=== PATIENT | female | born 1995 | race Caucasian/White ===

== ENCOUNTER 2017-01-29 17:27 | Emergency (ER) | payer BC ==
[2017-01-29 17:39] VITALS: BP 99/63
--- NOTE | 2017-01-29 18:33 | UC ---
General HPI - HPI Summary HPI Summary: NEEDS REFILL OF SEROQUIL, PROPANOLOL, AND WELLBUTRIN. WAS COVERED WITH [employer] Drape, HAS BEEN DROPPED BY THEIR SERVICE. APPT WITH [facility] IN [place]. NO THOUGHTS OF SELF HARM OR OF HURTING OTHERS. - History of Current Complaint Chief Complaint: UCMedRefill Stated Complaint: MED REFILL Time Seen by Provider: 01/29/17 18:08 Hx Obtained From: Patient Hx Last Menstrual Period: 01/15/17 Onset/Duration: Still Present Onset Severity: Mild Current Severity: None Pain Intensity: 0 Associated Signs & Symptoms: Negative: Agitation, Abdominal Pain, Cough, Dizziness, Diarrhea, Dysuria, Fever, Headache, Palpitations, Wheezing, Weakness - Allergy/Home Medications Allergies/Adverse Reactions: Allergies Allergy/AdvReac Type Severity Reaction Status Date / Time No Known Allergies Allergy Verified 01/29/17 17:39 Home Medications: Home Medications Bupropion HCl [Wellbutrin Sr] 300 mg PO BEDTIME 01/29/17 [History Confirmed ] [place] Carbonate 150 mg PO BEDTIME 01/29/17 [History Confirmed 01/29/17] Propranolol TAB* [Inderal TAB*] 10 mg PO DAILY PRN 01/29/17 [History Confirmed 01/29/17] Quetiapine Fumarate [Seroquel] 25 mg PO BEDTIME PRN 01/29/17 [History Confirmed 01/29/17] PMH/Surg Hx/FS Hx/Imm Hx Previously Healthy: Yes - Surgical History Surgical History: Yes Surgery Procedure, Year, and Place: HYMENECTOMY - Family History Known Family History: Positive: None - Social History Occupation: Student Lives: With Family Alcohol Use: Weekly Substance Use Type: Marijuana Substance Use Comment - Amount & Last Used: none in a week Smoking Status (MU): Light Every Day Tobacco Smoker Amount Used/How Often: about 3 times a week Review of Systems Constitutional: Negative Skin: Negative Eyes: Negative ENT: Negative Respiratory: Negative Cardiovascular: Negative Gastrointestinal: Negative Genitourinary: Negative Motor: Negative Neurovascular: Negative Musculoskeletal: Negative Neurological: Negative Psychological: Negative All Other Systems Reviewed And Are Negative: Yes Physical Exam Triage Information Reviewed: Yes Appearance: Well-Appearing, No Pain Distress, Well-Nourished Vital Signs: Initial Vital Signs Temp 98.5 F 01/29/17 17:33 Pulse 68 01/29/17 17:33 Resp 16 01/29/17 17:33 BP 99/63 01/29/17 17:33 Pulse Ox 100 01/29/17 17:33 Vital Signs Reviewed: Yes Eye Exam: Normal ENT Exam: Normal ENT: Positive: Normal ENT inspection, Hearing grossly normal, Pharynx normal, TMs normal Dental Exam: Normal Neck exam: Normal Neck: Positive: Supple, Nontender, No Lymphadenopathy Respiratory Exam: Normal Respiratory: Positive: Chest non-tender, Lungs clear, Normal breath sounds, No respiratory distress, No accessory muscle use Cardiovascular Exam: Normal Cardiovascular: Positive: RRR, No Murmur, Pulses Normal Abdominal Exam: Normal Musculoskeletal Exam: Normal Musculoskeletal: Positive: Strength Intact, ROM Intact Neurological Exam: Normal Psychological Exam: Normal Skin Exam: Normal Course/Dx - Course Course Of Treatment: PATIENT AGREED TO SEEK EVALUATION BY PRIMARY CARE, OR TO VISIT ED FOR PSYCHIATRIC CONSULTATION AND EVALUATION - Differential Dx - Multi-Symptom Differential Diagnoses: Metabolic Abnormality, Urinary Tract Infection Provider Diagnoses: NORMAL EXAM; Discharge - Discharge Plan Condition: Stable Disposition: HOME Referrals: Cuca Mosley MD [Primary Care Provider] - Additional Instructions: WE ARE UNABLE TO REFILL YOUR MEDICATIONS AT THIS TIME. PLEASE CALL YOUR PRIMARY CARE PROVIDER, AND/OR SEEK EVALUATION WITH THE EMERGENCY DEPARTMENT TO EVALUATE YOUR CONDITION AND TO RESPOND TO YOUR CONCERNS.
== END 2017-01-29 18:22 | disposition home or self-care (01) ==
LOC: UCEAST 17:27
DX: F99 Mental disorder, not otherwise specified (principal)
CPT/HCPCS: 99211; G0463

== ENCOUNTER 2017-01-29 19:08 | Emergency (ER) | payer BC ==
[2017-01-29 21:24] VITALS: BP 98/54
--- NOTE | 2017-01-29 21:49 | ED ---
Psychiatric Complaint - HPI Summary HPI Summary: THe patient is a 22 year old female priorly under the care of [facility] where her medications were filled in the past. The patient states she no longer follows with them and has an appointment [facility], however is unable to be seen by them until 02/09. She will run out of her medication prior to this time and is requesting refills for 2 weeks. SHe does have a primary physician. SHe denies HI/ SI and is not feeling depressed or manic. She is traveling to [place] tomorrow. - History Of Current Complaint Chief Complaint: EDPrescriptionNeeded Time Seen by Provider: 01/29/17 20:21 Hx Obtained From: Patient Hx Last Menstrual Period: 01/15/17 Severity Currently: None Aggravating Factor(s): Nothing Alleviating Factor(s): Nothing - Allergies/Home Medications Allergies/Adverse Reactions: Allergies Allergy/AdvReac Type Severity Reaction Status Date / Time No Known Allergies Allergy Verified 01/29/17 17:39 PMH/Surg Hx/FS Hx/Imm Hx Previously Healthy: No - previous psych history Respiratory History: Reports: Hx Asthma - Surgical History Surgery Procedure, Year, and Place: HYMENECTOMY Infectious Disease History: No Infectious Disease History: Denies: Traveled Outside the [place] in Last 30 Days - Family History Known Family History: Positive: None - Social History Alcohol Use: Weekly Substance Use Type: Reports: Marijuana Substance Use Comment - Amount & Last Used: none in a week Smoking Status (MU): Light Every Day Tobacco Smoker Amount Used/How Often: about 3 times a week Review of Systems All Other Systems Reviewed And Are Negative: Yes Physical Exam Triage Information Reviewed: Yes Vital Signs On Initial Exam: Initial Vitals Temp Pulse Resp BP Pulse Ox 97.7 F 61 14 104/64 100 01/29/17 19:19 01/29/17 19:19 01/29/17 19:19 01/29/17 19:19 01/29/17 19:19 Vital Signs Reviewed: Yes Appearance: Positive: Well-Appearing, No Pain Distress, Well-Nourished Skin: Positive: Warm, Skin Color Reflects Adequate Perfusion Respiratory/Lung Sounds: Positive: Breath Sounds Present Cardiovascular: Positive: Normal, RRR Neurological: Positive: Normal, Sensory/Motor Intact, Alert, Oriented to Person Place, Time, CN Intact II-III, Normal Gait, Facial Symmetry, Speech Normal Psychiatric: Positive: Normal Diagnostics - Vital Signs Vital Signs Temp Pulse Resp BP Pulse Ox 01/29/17 21:15 97.6 F 52 16 98/54 100 01/29/17 19:19 97.7 F 61 14 104/64 100 - Laboratory Lab Statement: Any lab studies that have been ordered have been reviewed, and results considered in the medical decision making process. Course/Dx - Course Course Of Treatment: Tx was discussed with patient due to patients travel plans medications will be called in for 1 week, however patient should be followed by primary or TC. - Differential Dx/Clinical Impression Provider Diagnosis: Medication refill Discharge - Discharge Plan Condition: Stable Disposition: HOME Prescriptions: Bupropion HCl [Wellbutrin Sr] 300 mg PO BEDTIME #7 dose Propranolol TAB* [Inderal TAB*] 10 mg PO DAILY PRN #7 dose PRN Reason: Anxiety Quetiapine Fumarate [Seroquel] 25 mg PO BEDTIME PRN #7 dose PRN Reason: Insomnia Patient Education Materials: Bupropion (By mouth), Quetiapine (By mouth), Propranolol (By mouth) Referrals: Cuca Mosley MD [Primary Care Provider] - Additional Instructions: - Medication given x 7 days. Please follow up with primary physician for medication refills.
--- NOTE | 2017-02-18 16:44 | ED ---
Progress - Progress Note Progress Note: It appears pt was seen by me but chart is attributed to the EVELIA Esqueda, so my documentation is complete Course/Dx - Course Course Of Treatment: Tx was discussed with patient due to patients travel plans medications will be called in for 1 week, however patient should be followed by primary or TC. - Diagnoses Provider Diagnoses: Medication refill
== END 2017-01-29 22:25 | disposition home or self-care (01) ==
LOC: ED 19:08
DX: Z76.0 Encounter for issue of repeat prescription (principal); F17.210 Nicotine dependence, cigarettes, uncomplicated
CPT/HCPCS: 99282

== ENCOUNTER 2018-11-20 16:25 | Emergency (ER) | payer BC ==
[2018-11-20 16:44] VITALS: BP 103/65
--- NOTE | 2018-11-20 16:56 | UC ---
Dental HPI - HPI Summary HPI Summary: had wisdom teeth removed about a month ago, 3 days ago noticed swelling lower L gum , becoming bigger and tender. denies tooth pain. has taken no med so far - History of Current Complaint Chief Complaint: Lynn Stated Complaint: MOUTH PAIN Time Seen by Provider: 11/20/18 16:40 Hx Obtained From: Patient Hx Last Menstrual Period: no periods ?: No Onset/Duration: Gradual Onset Severity: Mild Pain Intensity: 2 Aggravating Factor(s): Other - pressure on jeremy Related History: Swelling - Allergies/Home Medications Allergies/Adverse Reactions: Allergies Allergy/AdvReac Type Severity Reaction Status Date / Time No Known Allergies Allergy Verified 11/20/18 16:37 Home Medications: Home Medications [place] Carbonate [[place] Carbonate 600 mg cap] 600 mg PO DAILY 11/20/18 [ History Confirmed 11/20/18] Lurasidone(*) [Latuda] 40 mg PO DAILY 11/20/18 [History Confirmed 11/20/18] PMH/Surg Hx/FS Hx/Imm Hx Previously Healthy: Yes Psychological History: Anxiety - Surgical History Surgical History: Yes Surgery Procedure, Year, and Place: HYMENECTOMY - Family History Known Family History: Positive: None, Other - SI - Social History Occupation: Employed Full-time Lives: With Family Alcohol Use: Weekly Alcohol Amount: 4X/ week Substance Use Type: Marijuana Substance Use Comment - Amount & Last Used: a few times/ week Smoking Status (MU): Light Every Day Tobacco Smoker Amount Used/How Often: 5 cigs/ week Household Exposure Type: Cigarettes Cessation Counseling: Patient Advised to Stop - Immunization History Most Recent Influenza Vaccination: n/a Most Recent Pneumonia Vaccination: n/a Review of Systems All Other Systems Reviewed And Are Negative: Yes Constitutional: Positive: Negative. Negative: Fever, Chills ENT: Negative: Sore Throat, Ear Ache, Sinus Congestion, Sinus Pain/Tenderness Respiratory: Positive: Negative Cardiovascular: Positive: Negative Is Patient Immunocompromised?: No Physical Exam Triage Information Reviewed: Yes Appearance: Well-Appearing, No Pain Distress, Well-Nourished Vital Signs: Initial Vital Signs Temp 98 F 11/20/18 16:39 Pulse 62 11/20/18 16:39 Resp 18 11/20/18 16:39 BP 103/65 11/20/18 16:39 Pulse Ox 100 11/20/18 16:39 Dental: Positive: Abscess @ - palpable almond sized, tender mass lower L gum line, no pustule or drainage Neck exam: Normal Neck: Positive: No Lymphadenopathy Respiratory Exam: Normal Respiratory: Positive: Lungs clear Cardiovascular Exam: Normal Neurological Exam: Normal Psychological Exam: Normal Skin Exam: Normal Dental Complaint Course/Dx - Differential Dx/Diagnosis Differential Diagnosis/Dx: Dental Abscess, Dental Caries, Gingivitis, Other - abscess Provider Diagnosis: Dental abscess Discharge - Sign-Out/Discharge Documenting (check all that apply): Patient Departure All imaging exams completed and their final reports reviewed: No Studies - Discharge Plan Condition: Good Disposition: HOME Prescriptions: Penicillin VK 500 MG TAB(NF) [Penicillin VK 500 mg Tab] 500 mg PO TID #30 tab Patient Education Materials: Dental Abscess (ED) Referrals: Cuca Mosley MD [Primary Care Provider] - Additional Instructions: start penicillin and take as prescribed use ibuprofen 600mg every 6 hours as needed for pain Make sure to follow-up with your oral surgeon next week as planned - Billing Disposition and Condition Condition: GOOD Disposition: Home
== END 2018-11-20 17:00 | disposition home or self-care (01) ==
LOC: UCEAST 16:25
DX: K04.7 Periapical abscess without sinus (principal); F17.210 Nicotine dependence, cigarettes, uncomplicated
CPT/HCPCS: 99212; G0463

== ENCOUNTER 2019-06-30 14:16 | Inpatient (IN) | payer SELFPAY ==
--- NOTE | 2019-06-30 14:48 | ED ---
Psychiatric Complaint - HPI Summary HPI Summary: Patient is a 24 y/o F w/ Hx of bipolar disorder, depression, and anxiety who presents to [facility] with complaints of depression and SI. She states that she met with her friend today and discussed her Sx, patient was advised to come to ED for evaluation. She notes that she was at [facility] ten months ago for psychiatric issues as well. Patient reports that she has been off of her psychiatric medications for the past 3.5 months. She reports excessive alcohol, marijuana, and occasional cocaine usage. Patient reports last alcohol consumption was three days ago. Home medications and allergies are reviewed. - History Of Current Complaint Chief Complaint: EDMentalHealth Time Seen by Provider: 06/30/19 14:32 Hx Obtained From: Patient Hx Last Menstrual Period: no periods Onset/Duration: Still Present Timing: Constant Character: Depressed Has Suicidal: Reports: Thoughts - Allergies/Home Medications Allergies/Adverse Reactions: Allergies Allergy/AdvReac Type Severity Reaction Status Date / Time No Known Allergies Allergy Verified 06/30/19 14:24 Home Medications: Home Medications NK [No Home Medications Reported] 06/30/19 [History Confirmed 06/30/19] PMH/Surg Hx/FS Hx/Imm Hx Respiratory History: Reports: Hx Asthma Sensory History: Denies: Hx Contacts or Glasses, Hx Deafness, Hx Hearing Aid Opthamlomology History: Denies: Hx Contacts or Glasses Psychiatric History: Reports: Hx Anxiety, Hx Depression, Hx Community Mental Health Tx, Hx Bipolar Disorder Denies: Hx Eating Disorder, Hx of Violent Episodes Against Others - Surgical History Surgery Procedure, Year, and Place: HYMENECTOMY Infectious Disease History: No Infectious Disease History: Denies: Traveled Outside the [place] in Last 30 Days - Family History Known Family History: Positive: Other - SI - Social History Alcohol Use: Weekly Alcohol Amount: 4X/ week Substance Use Type: Reports: Marijuana Substance Use Comment - Amount & Last Used: a few times/ week Smoking Status (MU): Light Every Day Tobacco Smoker Amount Used/How Often: 5 cigs/ week Review of Systems Negative: Fever - on vitals, temp is 98.8 F Psychological: Other - positive - SI Positive: Depressed All Other Systems Reviewed And Are Negative: Yes Physical Exam - Summary Physical Exam Summary: VITAL SIGNS: Reviewed. GENERAL: Patient is a well-developed and nourished female who is lying comfortable in the stretcher. Patient is not in any acute respiratory distress. HEAD AND FACE: No signs of trauma. No ecchymosis, hematomas or skull depressions. No sinus tenderness. EYES: PERRLA, EOMI x 2, No injected conjunctiva, no nystagmus. EARS: Hearing grossly intact. Ear canals and tympanic membranes are within normal limits. MOUTH: Oropharynx within normal limits. NECK: Supple, trachea is midline, no adenopathy, no JVD, no carotid bruit, no c- spine tenderness, neck with full ROM. CHEST: Symmetric, no tenderness at palpation. LUNGS: Clear to auscultation bilaterally. No wheezing or crackles. CVS: Regular rate and rhythm, S1 and S2 present, no murmurs or gallops appreciated. ABDOMEN: Soft, non-tender. No signs of distention. No rebound, no guarding, and no masses palpated. Bowel sounds are normal. EXTREMITIES: FROM in all major joints, no edema, no cyanosis or clubbing. NEURO: Alert and oriented x 3. No acute neurological deficits. Speech is normal and follows commands. SKIN: Dry and warm. Triage Information Reviewed: Yes Vital Signs On Initial Exam: Initial Vitals Temp Pulse Resp BP Pulse Ox 98.8 F 79 18 135/69 100 06/30/19 14:19 06/30/19 14:19 06/30/19 14:19 06/30/19 14:19 06/30/19 14:19 Vital Signs Reviewed: Yes Procedures - Sedation Patient Received Moderate/Deep Sedation with Procedure: No Diagnostics - Vital Signs Vital Signs Temp Pulse Resp BP Pulse Ox 06/30/19 14:19 98.8 F 79 18 135/69 100 - Laboratory Result Diagrams: 06/30/19 14:56 06/30/19 14:56 Lab Statement: Any lab studies that have been ordered have been reviewed, and results considered in the medical decision making process. Course/Dx - Course Assessment/Plan: Patient is a 24 y/o F w/ Hx of bipolar disorder, depression, and anxiety who presents to [facility] with complaints of depression and SI. She states that she met with her friend today and discussed her Sx, patient was advised to come to ED for evaluation. She notes that she was at [facility] ten months ago for psychiatric issues as well. Patient reports that she has been off of her psychiatric medications for the past 3.5 months. She reports excessive alcohol, marijuana, and occasional cocaine usage. Patient reports last alcohol consumption was three days ago. Home medications and allergies are reviewed. Blood work w/o a significant abnormality. She is medically cleared. She is awaiting a [facility]. Patient is hemodynamically stable and A+O x 3. Patient was evaluated by Dr. Robison and he recommends admission to his services. Diagnosis is bipolar 1. The patient is hemodynamically stable. - Differential Dx/Clinical Impression Differential Diagnosis/HQI/PQRI: Positive: Anxiety, Depression, Suicidal Ideation Provider Diagnosis: Bipolar 1 disorder - Physician Notifications Discussed Care Of Patient With: Sonu Robison Time Discussed With Above Provider: 18:46 Instructed by Provider To: Other - Patient's case was reviewed by Dr. Robison, patient will be admitted to [facility] psych. Discharge ED - Sign-Out/Discharge Documenting (check all that apply): Patient Departure - admit - Discharge Plan Condition: Stable Disposition: ADMITTED TO [facility] - Billing Disposition and Condition Condition: STABLE Disposition: Admitted to [facility] - Attestation Statements Document Initiated by Saúlibe: Yes Documenting Scribe: ELBA HEWITT Provider For Whom Brock is Documenting (Include Credential): AILYN LAZO MD Scribe Attestation: ELBA Vasques scribed for AILYN LAZO MD on 06/30/19 at 2136. Scribe Documentation Reviewed: Yes Provider Attestation: The documentation as recorded by the ELBA coombs accurately reflects the service I personally performed and the decisions made by , AILYN LAZO MD Status of Scribe Document: Viewed
[2019-06-30 15:07] LABS: ABS Basophils 0.1 10^3/ul (0-0.2); ABS Eosinophils 0.1 10^3/ul (0-0.6); ABS Lymphocytes 1.8 10^3/ul (1.0-4.8); ABS Monocytes 0.5 10^3/ul (0-0.8); ABS Neutrophils 4.6 10^3/ul (1.5-7.7); Eosinophil % 1.7 %; Hematocrit 42 % (35-47); Hemoglobin 14.8 g/dL (12.0-16.0); Lymphocyte % 25.1 %; Mean Corpuscular HGB Conc 35 g/dL (31-36); Mean Corpuscular Hemoglobin 33 pg (27-31); Mean Corpuscular Volume 94 fL (80-97); Mean Platelet Volume 7.2 fL (7.4-10.4); Platelet Count 191 10^3/uL (150-450); Red Blood Count 4.53 10^6 /uL (3.70-4.87); Red Cell Distribution Width 13 % (10-15); White Blood Count 7.1 10^3/uL (3.5-10.8)
[2019-06-30 15:09] LABS: Urine Appearance Clear; Urine Bilirubin Negative (Negative); Urine Blood Negative (Negative); Urine Color Straw; Urine Glucose Negative (Negative); Urine Ketones Negative (Negative); Urine Nitrite Negative (Negative); Urine Protein Negative (Negative); Urine Specific Gravity 1.002 (1.010-1.030); Urine Urobilinogen Negative (Negative)
[2019-06-30 15:12] LABS: Urine Bacteria Absent (Absent); Urine Red Blood Cell Trace(0-2/hpf) (Absent); Urine Squamous Epithelial Cell Present (Absent); Urine White Blood Cell Trace(0-5/hpf) (Absent)
[2019-06-30 15:29] LABS: ALT 33 U/L (7-52); AST 31 U/L (13-39); Albumin 4.3 g/dL (3.2-5.2); Albumin/Globulin Ratio 1.5 (1-3); Alkaline Phosphatase 58 U/L (34-104); Anion Gap 7 mmol/L (2-11); BUN/Creatinine Ratio 17.6 (8-20); Blood Urea Nitrogen 12 mg/dL (6-24); CO2 Carbon Dioxide 27 mmol/L (22-32); Chloride 104 mmol/L (101-111); EGFR African American 129.7 (>60); EGFR Non-African American 107.2 (>60); Globulin 2.9 g/dL (2-4); Glucose 88 mg/dL (70-100); Potassium 3.7 mmol/L (3.5-5.0); Sodium 138 mmol/L (135-145); Total Protein 7.2 g/dL (6.4-8.9)
[2019-06-30 15:32] LABS: Urine Benzodiazepine Screen None Detected (None Detect); Urine Opiates Screen None Detected (None Detect)
[2019-06-30 16:10] LABS: Alcohol < 10 mg/dL (<10); Salicylate < 2.50 mg/dL (<30)
[2019-06-30 16:12] LABS: TSH (Thyroid Stimulating Horm) 0.81 mcIU/mL (0.34-5.60)
[2019-06-30 16:13] LABS: Acetaminophen < 15 mcg/mL
[2019-06-30] MEDS ORDERED: Al Hydrox/Mg Hydrox/Simet LIQ* 30 ML UDC PO PRN (19:59)
[2019-06-30] MEDS ORDERED: hydrOXYzine HCL TAB* 50 MG PO PRN (21:15)
[2019-07-01 08:00] LABS: Cholesterol 124 mg/dL; HDL Cholesterol 28.8 mg/dL; LDL Cholesterol 80 mg/dL; Triglycerides 74 mg/dL
[2019-07-01] MEDS: Vitamin THERAPEUTIC TAB PO SCH (08:53)
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
[2019-07-01] MEDS: ARIPiprazole TAB* 5 MG PO SCH (21:12)
[2019-07-02] MEDS: Vitamin THERAPEUTIC TAB PO SCH (12:25)
[2019-07-02 13:53] LABS: HCG Pregnancy < 0.60 mIU/mL
[2019-07-02] MEDS: ARIPiprazole TAB* 5 MG PO SCH (21:52)
[2019-07-03] MEDS: Vitamin THERAPEUTIC TAB PO SCH (07:55)
--- NOTE | 2019-07-03 17:00 | PN ---
Subjective - Subjective Date of Service: 07/03/19 Service Type: 18362 Hosp care 25 min moderate complexity Subjective: Elise appears to be calm, pleasant and cooperative. She understand the reasons for her relapse on symptoms and is willing to take meds again. She also requested to increase the dose of her meds so that she can go on long acting injectable before she leaves. Denies racing thoughts and SI. Says she slept well last night. Objective - General Observations Appearance: Neat, Well Groomed Appears Stated Age: Yes Stature: Thin, Tall Posture: WNL Eye Contact: Average Behavior/Activity: WNL - Interaction Observations Attitude Towards Examiner: Cooperative Stated Mood: Euthymic Affect: Full Speech Pattern/Tone: Clear, Appropriate, Normal Volume Perception: WNL Thought Content: WNL Hallucination Type: Denies Delusion Type: Denies - Cognitive Function Orientation: A&O x 4 Level of Consciousness: Awake, Alert, Appropriate Cognition: WNL Estimated Intelligence: Normal Insight: WNL Judgment Within Normal Limits: Yes - Medication Compliance Cooperative with Inpatient Medication Regimen: Yes - Group Participation Participates in Group Activities: Yes Assessment - Assessment Merits Inpatient Hospitalization: For Stabilization, Consolidate Improvements, For Discharge Planning Plan - Plan Treatment Plan: Name: ELISE HOWARD Birthdate: 1995 [id number] Continued Medication Management: Continue Outpt Medication Medications: Current Medications Acetaminophen (Tylenol Tab*) 650 mg PO Q4H PRN PRN Reason: PAIN or TEMP > 101 F Al Hydrox/Mg Hydrox/Simethicone (Maalox Plus*) 30 ml PO Q4H PRN PRN Reason: INDIGESTION Aripiprazole (Abilify Tab*) 10 mg PO BEDTIME CACHORRO Hydroxyzine HCl (Atarax Tab*) 50 mg PO Q6H PRN PRN Reason: .ANXIETY Multivitamins (Theragran Tab*) 1 tab PO DAILY CACHORRO Last Admin: 07/03/19 07:55 Dose: Not Given - Discharge Plan Discharge Plan: Outpatient Follow Up Outpatient Program: [facility]
[2019-07-03] MEDS: ARIPiprazole TAB* 5 MG PO SCH (21:12)
[2019-07-04] MEDS: Vitamin THERAPEUTIC TAB PO SCH (08:25)
[2019-07-04] MEDS: Acetaminophen TAB* 325 MG PO PRN ×3 (10:41→22:17)
--- NOTE | 2019-07-04 14:04 | PN ---
Subjective - Subjective Date of Service: 07/04/19 Service Type: [id number] Hosp care 25 min moderate complexity Subjective: Patient presents with elevated energy, as well as tangential topics and rapid speech. She reports that her thoughts are slowed down and that the environment is not stimulating. She reports not going to groups as they have not been helpful in the past. She states she wants to leave the hospital but does not have specific plans. Patient inquires about test and informed of negative HcG in ED. She states this was approx one week after unprotected sex. She declines to repeat test. Objective - General Observations Appearance: Well Groomed Stature: WNL Posture: Tense Eye Contact: Intermittent Behavior/Activity: Accelerated - Interaction Observations Attitude Towards Examiner: Cooperative, Ingratiating Stated Mood: Elevated Affect: Bright Speech Pattern/Tone: Normal Volume, Pressured Thought Process: Tangential, Racing Perception: WNL Thought Content: Grandiose Hallucination Type: Denies Delusion Type: Grandeur - Cognitive Function Orientation: A&O x 4 Level of Consciousness: Alert Cognition: Impaired Attention/Concentration Estimated Intelligence: Normal Insight: Difficulty Acknowledging Presence of Psyciatric Problems Judgment Within Normal Limits: No Ability to Make Reasonable Decisions: Moderately Impaired - Medication Compliance Cooperative with Inpatient Medication Regimen: Yes - Group Participation Participates in Group Activities: No Assessment - Assessment Merits Inpatient Hospitalization: For Immediate Safety, For Stabilization Inpatient DSM-V Dx: F31.63 Clinical Impression: 24yo wf with history of bipolar I disorder and poor compliance to outpatient treatment. She presented to ED by a friend when she expressed racing suicidal thoughts. She merits hospitalization for immediate safety and stabilization. Plan - Plan Treatment Plan: Name: ELIES HOWARD Birthdate: 1995 [id number] continue acute intensive psychiatric treatment. may decrease to q30min and allow staff pass. continue current medications, consider Abilify SOMMER. discharge to include outpatient MH referrals. Continued Medication Management: Consider Medication Medications: Current Medications Acetaminophen (Tylenol Tab*) 650 mg PO Q4H PRN PRN Reason: PAIN or TEMP > 101 F Last Admin: 07/04/19 10:41 Dose: 650 mg Al Hydrox/Mg Hydrox/Simethicone (Maalox Plus*) 30 ml PO Q4H PRN PRN Reason: INDIGESTION Aripiprazole (Abilify Tab*) 10 mg PO BEDTIME CACHORRO Last Admin: 07/03/19 21:12 Dose: 10 mg Hydroxyzine HCl (Atarax Tab*) 50 mg PO Q6H PRN PRN Reason: .ANXIETY Last Admin: 07/03/19 21:16 Dose: 50 mg Multivitamins (Theragran Tab*) 1 tab PO DAILY [facility] Last Admin: 07/04/19 08:25 Dose: Not Given - Discharge Plan Discharge Plan: Inpatient Hospitalization
[2019-07-04] MEDS: ARIPiprazole TAB* 5 MG PO SCH (20:05)
[2019-07-05] MEDS: Acetaminophen TAB* 325 MG PO PRN ×2 (07:43→16:19)
[2019-07-05] MEDS: Vitamin THERAPEUTIC TAB PO SCH (08:52)
--- NOTE | 2019-07-05 11:14 | PN ---
BSU: Group Therapy Note - Service Type Service Type: 05741 Group Psychotherapy - Cognitive Behavioral Group Therapy ( CBT):Patient was attentive and participatory in CBT programming this morning, and remained in good behavioral control. Patient expressed positive insights regarding relevant treatment interventions and goals.
--- NOTE | 2019-07-05 14:40 | PN ---
Subjective - Subjective Date of Service: 07/05/19 Service Type: [id number] Hosp care 25 min moderate complexity Subjective: Elise is eager to leave the unit. She finds it boring and feels like she has more pressing things to accomplish outside the unit. Her mood is elevated, although less so than at admission. She no longer endorses suicidal thoughts but does acknowledge that her tendency to having shifting moods is problematic. She wanted to use the injectable aripiprazole, which was administered (675 mg of Initio and 441 mg of Aristada). She was also agreeable to Depakote ER 1000 mg at bedtime. Despite her assertion that she has a hard time remembering to take medications orally, she was interested. She was put off by the possibility of losing hair, but agreed to try Depakote for a month. She is willing to follow up at [facility] clinic. Objective - General Observations Appearance: Neat, Well Groomed Appears Stated Age: Yes Stature: WNL Posture: WNL Eye Contact: Average Behavior/Activity: Accelerated - Interaction Observations Attitude Towards Examiner: Cooperative, Anxious Stated Mood: Elevated, Euthymic Affect: Full, Bright Speech Pattern/Tone: Clear, Appropriate, Normal Volume Thought Process: Coherent Perception: WNL Thought Content: WNL Hallucination Type: None Delusion Type: None - Cognitive Function Orientation: A&O x 4 Level of Consciousness: Awake, Alert, Appropriate Cognition: Impaired Attention/Concentration Estimated Intelligence: Normal Insight: WNL, Difficulty Acknowledging Presence of Psyciatric Problems Judgment Within Normal Limits: No Ability to Make Reasonable Decisions: Mildly Impaired - Medication Compliance Cooperative with Inpatient Medication Regimen: Yes - Group Participation Participates in Group Activities: Yes Assessment - Assessment Merits Inpatient Hospitalization: For Immediate Safety Inpatient DSM-V Dx: F31.63 Clinical Impression: 24yo wf with history of bipolar I disorder and poor compliance to outpatient treatment. She presented to ED by a friend when she expressed racing suicidal thoughts. She merits hospitalization for immediate safety and stabilization. BSU: Problem List - Patient Problems (1) Bipolar 1 disorder Current Visit: Yes Status: Acute Code(s): F31.9 - BIPOLAR DISORDER, UNSPECIFIED SNOMED Code(s): 739146864 Plan - Plan Treatment Plan: Name: ELISE HOWARD Birthdate: 1995 [id number] continue acute intensive psychiatric treatment. may decrease to q30min and allow staff pass. continue current medications, follow up on aripiprazole injection reactions discharge to include outpatient MH referrals at [facility] Continued Medication Management: Different Medication Medications: Current Medications Acetaminophen (Tylenol Tab*) 650 mg PO Q4H PRN PRN Reason: PAIN or TEMP > 101 F Last Admin: 07/05/19 07:43 Dose: 650 mg Al Hydrox/Mg Hydrox/Simethicone (Maalox Plus*) 30 ml PO Q4H PRN PRN Reason: INDIGESTION Last Admin: 07/04/19 22:19 Dose: 30 ml Aripiprazole (Abilify Tab*) 10 mg PO BEDTIME CACHORRO Last Admin: 07/04/19 20:05 Dose: 10 mg Hydroxyzine HCl (Atarax Tab*) 50 mg PO Q6H PRN PRN Reason: .ANXIETY Last Admin: 07/03/19 21:16 Dose: 50 mg Multivitamins (Theragran Tab*) 1 tab PO DAILY CACHORRO Last Admin: 07/05/19 08:52 Dose: 1 tab - Discharge Plan Discharge Plan: [facility]
[2019-07-05] MEDS: ARIPiprazole TAB* 5 MG PO SCH (20:55)
[2019-07-06 09:17] VITALS: BP 122/68
[2019-07-06] MEDS: Vitamin THERAPEUTIC TAB PO SCH (09:20)
--- NOTE | 2019-07-07 14:02 | DS ---
DISCHARGE SUMMARY: DATE OF ADMISSION: 06/30/19 DATE OF DISCHARGE: 07/06/19 PROVIDER: Ailin Ortiz NP in Psychiatry. SUPERVISING PHYSICIAN: Dr. Sonu Robison.* (DICTATED BY AILIN ORTIZ NP) DIAGNOSES: 1. Bipolar 1 disorder. 2. Borderline personality disorder. CONDITION AT THE TIME OF DISCHARGE: Improved. Psychiatrically cleared, stable. Kisha participated in groups and was social with peers. Her family is agreeable to discharge as is Kisha. She has done well here psychiatrically. She tolerated the addition of Abilify well. She is scheduled to attend [facility]. She did agree to take a long acting injectable. She took Aristada Initio 675 as well as Aristada 441. These injections were given on 07/05/19. She will be due for her next injection on 08/02/19. MENTAL STATUS EXAM: At the time of discharge, Kisha is calm, cooperative, and makes good eye contact. She is alert and oriented x4. Her grooming is good. Her speech pace is slightly rapid. Her thought processes are logical. She is not psychotic or delusional. She denies AH, VH, SI, and HI. Her insight and judgment are fair. She is willing to follow up and urged to see a therapist. DISCHARGE INSTRUCTIONS TO THE PATIENT: A. Medications: 10 mg of Abilify for 2 days, 10 mg per day. As mentioned before, Aristada Initio was administered on 07/05/19 and Aristada 441 the equivalent of 10 mg of Abilify per day was also administered on 07/05/19. B. Diet is regular. C. Activities as tolerated. She is a nonsmoker. There are no studies pending at the time of discharge. D. Followup care: She has an appointment at [facility] on 07/08/19 at 10 a.m. with Helen Hendricks, she is encouraged to come half an hour early to fill out paperwork. She also has an appointment with Dr. Cuca Mosley at 1:30 on 07/11/19. E. Disposition: She will be discharged to her apartment. Her parents are driving her there. F. Substance abuse followup is not currently indicated. HOSPITAL COURSE: Part A: Chief complaint: "My friends call me the [facility], they say I am manically depressed." Kisha is a 24-year-old single white female with a previous diagnosis of bipolar disorder and borderline personality disorder. Kisha was brought to the ED by her friend, Sarah who she is known as an advisor and friend since childhood. Kisha states she reached out to Sarah because she knew she was not doing well. When Sarah saw her, Sarah decided that she needed to go to the inpatient psychiatric unit. 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 However, according to the HPI from her admission in July 2018, she reported using cocaine "once a week or once every other week. " She reports that about 2 weeks ago, she spent 700 dollars which was all the money she had on "all the things I didn't need, all the good stuff." She reports that recently, she has been partying more and has increased her alcohol and marijuana consumption as a way to help her sleep. She reports difficulty focusing, stating she cannot "follow through on goals" and that her mind is "never not going." She complains of symptoms of ADHD, stating she cannot follow through on anything , cannot focus on other things and has racing thoughts. She states her dad and brother have ADHD and that she has had testing by Dr. Chris Young who referred her to get treatment for the anxiety and depression she scored for before completing her diagnosis. Kisha states that her friends refer to her as "the centeno of masking." Stating they described her mood as being manically depressive. She is not currently in therapy, not currently taking medications, and has never taken medication consistently. Kisha is indiscrete, has many grandiose beliefs such as she must be the best or she is absolutely the worst. She has rapid thoughts. She speaks rapidly. Part B: Psychiatric treatment was rendered: Kisha was admitted to the adult behavioral unit and placed on 15-minute checks for safety. She did advance to 30- minute checks and staff pass privileges. Kisha did well on the unit and went to groups, although she stated she found them boring and unhelpful. She interacted with peers well. Kisha was eager to leave and wanted to take medications as soon as possible, so that she could leave as soon as possible. We did start her on aripiprazole lauroxil and we started her on Initio 675 mg and aripiprazole lauroxil 441 mg. This is approximately equivalent to 10 mg of oral Abilify medication. We did want to start her on Depakote, but time did not allow that as by the time we were ready to begin, she was going to be discharged the next day. I encouraged her to follow up with her outpatient providers to discover whether Abilify continued to work well for her and if a mood stabilizer would be helpful in addition. Her main objection to Depakote was that hair loss is possible. Other than that, she was willing to try. Because she is on an atypical antipsychotic, we should note that her baseline hemoglobin A1c is 5.1, triglycerides are 74, cholesterol is 124, LDL cholesterol is 80, HDL cholesterol 28.8 incidentally. Her TSH is 0.81. Although, Kisha stated that she had been using marijuana to help her sleep, her cannabinoid screen came back as none detected. I did meet with her mom, Crystal, and her father. They had a lot of questions regarding the disease state of bipolar disorder and also specific questions about Kisha herself. They found some of her current behaviors quite irritating and discussed how she could be perceived either as lazy or anxious. They were encouraged to consider ways to help her with her anxiety that is getting in the way of her doing tasks that she is required to do. She did meet with Butch Smith who is our high school learning support teacher, indicated it was a bit of an odd meeting because she requested the visit and when Butch asked her why, she said "nothing in particular, I just thought it would be good to talk with the high school learning support teacher." It leads to a demonstration of Kisha's scattered thought processes at the time and her desire to be very social. At this time, Kisha is improved. She is less talkative. She still speaks at a rapid pace. She shows more insight into her disorder. She seems to be curious about ways to avoid having to come into the hospital again and that is one of the greatest benefit she can see to taking her medication appropriately. AILIN ORTIZ, CONSTRUCTION SUPERINTENDENT [id number]/[facility] #: [id number] [facility]
== END 2019-07-06 13:30 | disposition home or self-care (01) | DRG 885 ==
LOC: ED 14:16 → BSU 20:38
PROVIDERS: ADMIT Psychiatry & Neurology Psychiatry; ATTEND Psychiatry & Neurology Psychiatry
PROC: GZHZZZZ Group Psychotherapy (ICD-10-PCS; principal; 2019-07-05)
DX: F31.60 Bipolar disorder, current episode mixed, unspecified (principal); R45.851 Suicidal ideations; F41.9 Anxiety disorder, unspecified; F60.3 Borderline personality disorder; J45.909 Unspecified asthma, uncomplicated; F17.290 Nicotine dependence, other tobacco product, uncomplicated; Z91.19 Patient's noncompliance with other medical treatment and regimen; Z79.899 Other long term (current) drug therapy
CPT/HCPCS: 36415; 80053; 80061; 80307; 80320; 80329; 81003; 81015; 83036; 84443; 84702; 85025; 87086; 90853; 99222; 99232; 99238; 99283; A9270-GY; G0480